=== PATIENT | male | born 1990 | race Caucasian/White ===

== ENCOUNTER 2017-12-04 09:03 | Emergency (ER) | payer BC ==
[2017-12-04 09:15] VITALS: BP 120/79
--- NOTE | 2017-12-04 09:22 | UC ---
Cardiac HPI - HPI Summary HPI Summary: 27 yo male presents with left sided chest pain that began 3 days ago and has been persistent since. He tells me that he quit smoking cigarettes 1 week ago and has been using "vapes" since. His pain is worse when taking a deep breath. Denies fever, chills, cough, SOB, DEAN, abdominal pain, n/v, or recent illness. His father and grandfather both <60years old due to DE. - History of Current Complaint Chief Complaint: UCChestPain Stated Complaint: CHEST PAIN Time Seen by Provider: 12/04/17 09:22 Hx Obtained From: Patient Initial Severity: Mild Current Severity: Mild Pain Intensity: 4 - Allergy/Home Medications Allergies/Adverse Reactions: Allergies Allergy/AdvReac Type Severity Reaction Status Date / Time No Known Allergies Allergy Verified 12/04/17 10:47 Home Medications: Home Medications NK [No Home Medications Reported] 12/04/17 [History Confirmed 12/04/17] PMH/Surg Hx/FS Hx/Imm Hx - Additional Past Medical History Additional PMH: None - Surgical History Surgical History: Yes Surgery Procedure, Year, and Place: fx nose repaired - Family History Known Family History: Positive: Cardiac Disease, Hypertension - Social History Occupation: Employed Full-time Lives: With Family Alcohol Use: Daily Alcohol Amount: 2 BEERS/NIGHT Substance Use Type: Marijuana Substance Use Comment - Amount & Last Used: daily Smoking Status (MU): Former Smoker Type: Cigarettes Amount Used/How Often: 1 PPD Review of Systems Constitutional: Negative Skin: Negative Eyes: Negative ENT: Negative Respiratory: Negative Cardiovascular: Chest Pain Gastrointestinal: Negative Genitourinary: Negative Neurovascular: Negative Neurological: Negative Psychological: Negative All Other Systems Reviewed And Are Negative: Yes Physical Exam - Summary Physical Exam Summary: GENERAL: NAD. WDWN. No pain distress. SKIN: No rashes, sores, lesions, or open wounds. NECK: Supple. Nontender. No lymphadenopathy. CHEST: CTAB. No r/r/w. No accessory muscle use. Breathing comfortably and in no distress. CV: RRR. Without m/r/g. Pulses intact. Cap refill <2seconds ABDOMEN: Soft. NTTP. No distention or guarding. No CVA tenderness. Bowel sounds present NEURO: Alert. PSYCH: Age appropriate behavior. Triage Information Reviewed: Yes Vital Signs: Initial Vital Signs Temp 97.6 F 12/04/17 09:09 Pulse 56 12/04/17 09:09 Resp 18 12/04/17 09:09 BP 120/79 12/04/17 09:09 Pulse Ox 99 12/04/17 09:09 Vital Signs Reviewed: Yes - Assessment/Plan Course Of Treatment: XR: IMPRESSION: #. No evidence for acute intrathoracic disease. Negative exam. EKG sinus judit at 56bpm, early repol ST elevation, Incomplete BBB as read by Dr. Mckay. His symptoms are concerning for pericarditis - therefore I have advised him to be seen in the ED for further evaluation of this. Pt declined ambulance and will drive himself. - Clinical Impression Provider Diagnoses: Chest pain Discharge - Sign-Out/Discharge Documenting (check all that apply): Patient Departure All imaging exams completed and their final reports reviewed: Yes - Discharge Plan Condition: Stable Disposition: HOME Referrals: No Primary Care Phys,NOPCP [Primary Care Provider] - Additional Instructions: Please go to the ER for further evaluation of your chest pain - Billing Disposition and Condition Condition: STABLE Disposition: Home - Attestation Statements Provider Attestation: Per institutional requirements, I have reviewed the chart, however, I was not consulted specifically or made aware of this patient by the midlevel provider. I did not personally evaluate, interact with , or disposition this patient.
--- NOTE | 2017-12-04 10:11 | RAD ---
INDICATION: Chest pain. Recent smoking cessation. COMPARISON: January 11, 2013 TECHNIQUE: Dual energy PA and routine lateral views of the chest were obtained. REPORT: Clear lungs and pleural spaces. Negative for pneumothorax. The heart, pulmonary vasculature, and mediastinal contours are unremarkable. Unremarkable osseous structures and soft tissue contours. IMPRESSION: #. No evidence for acute intrathoracic disease. Negative exam.
== END 2017-12-04 10:20 | disposition home or self-care (01) ==
LOC: UCEAST 09:03
CPT/HCPCS: 71046; 93005; 99211; G0463

== ENCOUNTER 2017-12-04 10:42 | Emergency (ER) | payer BC ==
[2017-12-04] MEDS ORDERED: Aspirin 81 mg CHEW TAB* 81 MG TAB.CHEW PO ONE (11:29)
--- NOTE | 2017-12-04 11:37 | ED ---
HPI Chest Pain - HPI Summary HPI Summary: This pt is a 27 y/o male presenting to [facility] for chest pain x2 days. Pt reports his chest pain is located on the left anterior and is worse with deep breaths. He states his chest pain radiates through his back on the left side. He states he just quit smoking 2 weeks ago and has since started using vapes. Additionally he admits to smoking marijuana. Denies fever, chills, cough, SOB, abd pain, nausea, vomiting. Pt went to Urgent Care today where he had a chest XR done. NKDA. No PMHx. Home Medications Medication Instructions Recorded Confirmed Type Naproxen [Naprosyn 500 mg tab] 500 mg PO BID #14 tablet 12/04/17 Rx - History of Current Complaint Chief Complaint: EDChestPainROMI Hx Obtained From: Patient Onset/Duration: Started Days Ago - 2, Still Present Timing: Lasting Days - 2 Current Severity: Moderate Pain Intensity: 5 Pain Scale Used: 0-10 Numeric Chest Pain Location: Left Anterior Chest Pain Radiates: Yes Chest Pain Radiates To:: Back - left Character: Dull/Aching Aggravating Factor(s): Deep Breaths Alleviating Factor(s): Nothing Associated Signs and Symptoms: Positive: Chest Pain. Negative: Fever, Chills, Nausea, Vomiting - Allergy/Home Medications Allergies/Adverse Reactions: Allergies Allergy/AdvReac Type Severity Reaction Status Date / Time No Known Allergies Allergy Verified 12/04/17 10:47 PMH/Surg Hx/FS Hx/Imm Hx Endocrine/Hematology History: Denies: Hx Diabetes, Hx Thyroid Disease Cardiovascular History: Denies: Hx Hypertension Respiratory History: Denies: Hx Asthma, Hx Chronic Obstructive Pulmonary Disease (COPD) GI History: Denies: Hx Ulcer - Surgical History Surgery Procedure, Year, and Place: fx nose repaired Infectious Disease History: No Infectious Disease History: Denies: Hx Clostridium Difficile, Hx Hepatitis, Hx Human Immunodeficiency Virus (HIV), Hx of Known/Suspected MRSA, Hx Shingles, Hx Tuberculosis, Hx Known/ Suspected VRE, Hx Known/Suspected VRSA, History Other Infectious Disease, Traveled Outside the [place] in Last 30 Days - Family History Known Family History: Negative: Cardiac Disease, Hypertension, Diabetes - Social History Alcohol Use: Daily Alcohol Amount: 2 BEERS/NIGHT Substance Use Type: Reports: Cocaine - last used a couple of weeks ago, Marijuana Substance Use Comment - Amount & Last Used: daily marijuana Hx Tobacco Use: Yes Smoking Status (MU): Former Smoker Type: Cigarettes Amount Used/How Often: 1 PPD Review of Systems Negative: Fever, Chills Positive: Chest Pain Negative: Shortness Of Breath, Cough Negative: Abdominal Pain, Vomiting, Nausea Skin: Negative Neurological: Negative All Other Systems Reviewed And Are Negative: Yes Physical Exam - Summary Physical Exam Summary: Appearance: Well-appearing, moderate pain distress, well-nourished Skin: Warm, color reflects adequate perfusion, dry Head: Normal Head/Face inspection, atraumatic Eyes: Conjunctiva clear ENT: Normal inspection Neck: Supple, no nodes, no JVD Respiratory: Lungs clear, normal breath sounds, no respiratory distress Cardio: RRR, No murmur, pulses normal, brisk capillary refill Abdomen: Soft, nontender Bowel sounds: Present Musculoskeletal: Strength Intact/ROM intact, no calf tenderness, no edema. Psychological: Normal Neuro: Alert, muscle tone normal, no focal deficit Triage Information Reviewed: Yes Vital Signs On Initial Exam: Initial Vitals Temp Pulse Resp BP Pulse Ox 97.7 F 56 18 126/76 99 12/04/17 10:44 12/04/17 10:44 12/04/17 10:44 12/04/17 10:44 12/04/17 10:44 Vital Signs Reviewed: Yes Diagnostics - Vital Signs Vital Signs Temp Pulse Resp BP Pulse Ox 12/04/17 10:44 97.7 F 56 18 126/76 99 - Laboratory Result Diagrams: 12/04/17 11:48 12/04/17 11:48 Lab Statement: Any lab studies that have been ordered have been reviewed, and results considered in the medical decision making process. - Radiology Chest XR from Urgent Care Xray Interpretation: No Acute Changes - IMPRESSION: No evidence for acute intrathoracic disease. Negative exam. Dr. Fernandez has reviewed this report. Radiology Interpretation Completed By: Radiologist - EKG 11:32 Cardiac Rate: Bradycardia - at 54 bpm EKG Rhythm: Sinus Bradycardia ST Segment: Non-Specific Ectopy: None EKG Interpretation: nml AV/IV CT, nml QTc, and nml axis. EKG Comparison: No Significant Change - no acute changes compared to 01/11/13 and to Urgent Care's EKG today. Re-Evaluation - Re-Evaluation First Eval Re-Evaluation Time: 16:14 Comment: Pt still with chest pain. He was only given aspirin. He admits to last doing cocaine a couple of weeks ago. BP is 115/68, HR is 68 bpm, O2 sat is 99% on room air. Chest Pain Course/Dx - Course Course Of Treatment: Pt medications reviewed this visit. Pt is a 27 y/o male presenting to the ED c/o left anterior chest pain radiating through his back on the left side. Pt admits to vaping, smoking marijuana, and using cocaine a couple of weeks ago. Chest XR from Urgent Care shows no evidence for acute intrathoracic disease. Negative exam. Pt had 2 negative troponins and a D- dimer less than 200. Pt will be discharged to home with rx for Naproxen. He is strongly advised to stop vaping and stop smoking marijuana. - Diagnoses Provider Diagnoses: Pleurisy, Tobacco use disorder, Chest pain Discharge - Sign-Out/Discharge Documenting (check all that apply): Patient Departure - Discharge to home - Discharge Plan Condition: Stable Disposition: HOME Prescriptions: Naproxen [Naprosyn 500 mg tab] 500 mg PO BID #14 tablet Patient Education Materials: Pleurisy (ED), How to Stop Smoking (ED) Referrals: [facility] REFERRAL [Outside] - 2 Days [facility] [Outside] Additional Instructions: Dr. Fernandez has prescribed you Naproxen that she wants you to take at least for 1 week with food. Try to stop smoking and do not vape. RETURN TO THE EMERGENCY DEPARTMENT FOR ANY NEW OR WORSENING SYMPTOMS. - Attestation Statements Document Initiated by Scribe: Yes Documenting Scribe: Bushra Pruitt Provider For Whom Elise is Documenting (Include Credential): Dr. Makayla Fernandez MD Scribe Attestation: Bushra Lam, scribed for Dr. Makayla Fernandez MD on 12/04/17 at 1646.
[2017-12-04 11:59] LABS: ABS Basophils 0.1 10^3/ul (0-0.2); ABS Eosinophils 0.2 10^3/ul (0-0.6); ABS Lymphocytes 2.6 10^3/ul (1.0-4.8); ABS Monocytes 0.5 10^3/ul (0-0.8); ABS Neutrophils 2.9 10^3/ul (1.5-7.7); ABS Nucleated RBC 0 10^3/ul; Eosinophil % 2.5 % (0-6); Hematocrit 49 % (42-52); Hemoglobin 17.3 g/dl (14.0-18.0); Lymphocyte % 41.2 % (25-47); Mean Corpuscular HGB Conc 35 g/dl (31-36); Mean Corpuscular Hemoglobin 32 pg (27-31); Mean Corpuscular Volume 90 fL (80-94); Mean Platelet Volume 6.9 um3 (7.4-10.4); Nucleated Red Blood Cells % 0.1; Platelet Count 313 10^3/ul (150-450); Red Blood Count 5.47 10^6/ul (4.00-5.40); Red Cell Distribution Width 13 % (10.5-15); White Blood Count 6.3 10^3/ul (3.5-10.8)
[2017-12-04 12:18] LABS: EGFR Non-African American 119.5 (>60)
[2017-12-04 16:32] VITALS: BP 115/68
== END 2017-12-04 16:31 | disposition home or self-care (01) ==
LOC: ED 10:42
DX: R09.1 Pleurisy (principal); R07.9 Chest pain, unspecified; F17.210 Nicotine dependence, cigarettes, uncomplicated
CPT/HCPCS: 36415; 80053; 83605; 84484; 85025; 85379; 93005; 99282; A9270-GY

== ENCOUNTER 2018-06-04 10:04 | Emergency (ER) | payer SELFPAY ==
[2018-06-04] MEDS ORDERED: Aspirin 81 mg CHEW TAB* 81 MG TAB.CHEW PO ONE (10:18)
[2018-06-04] MEDS ORDERED: LORazepam TAB(*) 1 MG PO ONE (10:19)
[2018-06-04 11:50] LABS: ABS Basophils 0 10^3/ul (0-0.2); ABS Eosinophils 0 10^3/ul (0-0.6); ABS Lymphocytes 1.2 10^3/ul (1.0-4.8); ABS Monocytes 0.7 10^3/ul (0-0.8); ABS Neutrophils 8.9 10^3/ul (1.5-7.7); ABS Nucleated RBC 0 10^3/ul; Eosinophil % 0.3 %; Hematocrit 47 % (36-46); Hemoglobin 16.5 g/dL (14.0-18.0); Mean Corpuscular HGB Conc 35 g/dL (31-36); Mean Corpuscular Hemoglobin 31 pg (27-31); Mean Corpuscular Volume 88 fL (80-94); Mean Platelet Volume 7.1 fL (7.4-10.4); Nucleated Red Blood Cells % 0; Platelet Count 324 10^3/uL (150-450); Red Blood Count 5.29 10^6 /uL (4.18-5.48); Red Cell Distribution Width 13 % (10.5-15); White Blood Count 10.9 10^3/uL (3.5-10.8)
[2018-06-04 12:00] LABS: Activated Partial Thrombo Time 29.8 seconds (26.0-36.3); INR 0.87 (0.77-1.02)
[2018-06-04 12:09] LABS: Albumin 4.8 g/dL (3.2-5.2); Albumin/Globulin Ratio 2.4 (1-3); BUN/Creatinine Ratio 18.9 (8-20); Calcium 9.7 mg/dL (8.6-10.3); EGFR African American 154.7 (>60); EGFR Non-African American 127.9 (>60); Magnesium 1.8 mg/dL (1.9-2.7); Potassium 3.8 mmol/L (3.5-5.0); Total Bilirubin 0.6 mg/dL (0.2-1.0); Total Protein 6.8 g/dL (6.4-8.9)
[2018-06-04 12:12] LABS: Myoglobin 23.1 ng/mL (17.4-105.7)
[2018-06-04 12:14] LABS: CKMB ng/mL 2.7 ng/mL (0.6-6.3)
[2018-06-04 12:32] VITALS: BP 124/74
[2018-06-04 13:38] LABS: T4, Total 3.42 mcg/dL (6.09-12.23)
[2018-06-04 13:42] LABS: TSH (Thyroid Stimulating Horm) 0.67 mcIU/mL (0.34-5.60)
--- NOTE | 2018-06-04 15:35 | ED ---
HPI Chest Pain - HPI Summary HPI Summary: The patient is a 28-year-old male presenting to the ED with severe anxiety attack. He states he is having midsternal chest pressure, tingling all over including his face. He is also endorsing cramping up of the hands. He states this is happened before and he states "I know it's my heart." He does have a history of anxiety and takes no medications. He does not think this is anxiety though. He is stating on arrival "this is freaking me out!" He denies any health problems, takes no medications and is otherwise healthy. He states he has been worked up for cardiac issues in the past for similar symptoms and all were negative. - History of Current Complaint Chief Complaint: EDChestPainROMI Time Seen by Provider: 06/04/18 10:17 Hx Obtained From: Patient Onset/Duration: Started Hours Ago Timing: Constant Initial Severity: Mild Current Severity: Severe Pain Intensity: 2 Pain Scale Used: 0-10 Numeric Chest Pain Location: Mid Sternal Chest Pain Radiates: No Alleviating Factor(s): Rest Associated Signs and Symptoms: Positive: Anxiety, Recent Stress, Numbness, Tingling. Negative: Chills, Lightheadedness, Nausea, Palpitations, Abdominal Pain, Calf Pain/Swelling, Vomiting, Bloody Sputum - Risk Factors Pulmonary Embolism Risk Factors: Negative TAD Risk Factors: Negative - Allergy/Home Medications Allergies/Adverse Reactions: Allergies Allergy/AdvReac Type Severity Reaction Status Date / Time No Known Allergies Allergy Verified 06/04/18 10:07 Home Medications: Home Medications NK [No Home Medications Reported] 06/04/18 [History Confirmed 06/04/18] PMH/Surg Hx/FS Hx/Imm Hx Previously Healthy: Yes Endocrine/Hematology History: Denies: Hx Diabetes, Hx Thyroid Disease Cardiovascular History: Denies: Hx Hypertension Respiratory History: Denies: Hx Asthma, Hx Chronic Obstructive Pulmonary Disease (COPD) GI History: Denies: Hx Ulcer - Surgical History Surgery Procedure, Year, and Place: fx nose repaired - Immunization History Hx Pertussis Vaccination: No Immunizations Up to Date: Yes Infectious Disease History: No Infectious Disease History: Denies: Hx Clostridium Difficile, Hx Hepatitis, Hx Human Immunodeficiency Virus (HIV), Hx of Known/Suspected MRSA, Hx Shingles, Hx Tuberculosis, Hx Known/ Suspected VRE, Hx Known/Suspected VRSA, History Other Infectious Disease, Traveled Outside the [place] in Last 30 Days - Family History Known Family History: Positive: None Negative: Cardiac Disease, Hypertension, Diabetes - Social History Occupation: Employed Part-time Lives: With Family Alcohol Use: Occasionally Alcohol Amount: 2 BEERS/NIGHT Hx Substance Use: Yes Substance Use Type: Reports: Marijuana Substance Use Comment - Amount & Last Used: reports stopped marijuana last week Hx Tobacco Use: Yes Smoking Status (MU): Former Smoker Type: Cigarettes Amount Used/How Often: 1 PPD Review of Systems Negative: Fever, Chills, Fatigue, Skin Diaphoresis Negative: Blurred Vision, Diplopia Negative: Dental Pain, Sore Throat Positive: Chest Pain Positive: Shortness Of Breath. Negative: Cough Negative: Abdominal Pain, Vomiting, Diarrhea, Nausea Genitourinary: Negative Positive: no symptoms reported Negative: Arthralgia, Myalgia Positive: Anxious All Other Systems Reviewed And Are Negative: Yes Physical Exam Triage Information Reviewed: Yes Vital Signs On Initial Exam: Initial Vitals Temp Pulse Resp BP Pulse Ox 97.4 F 135 22 138/93 100 06/04/18 10:07 06/04/18 10:07 06/04/18 10:07 06/04/18 10:07 06/04/18 10:07 Vital Signs Reviewed: Yes Appearance: Positive: Well-Appearing, Well-Nourished Skin: Positive: Warm, Skin Color Reflects Adequate Perfusion Head/Face: Positive: Normal Head/Face Inspection Eyes: Positive: EOMI, Conjunctiva Clear Neck: Positive: Supple, No Lymphadenopathy Respiratory/Lung Sounds: Positive: Clear to Auscultation, Breath Sounds Present Cardiovascular: Positive: Normal, RRR, Pulses are Symmetrical in both Upper and Lower Extremities Musculoskeletal: Positive: Normal, Strength/ROM Intact Neurological: Positive: Sensory/Motor Intact, Alert, Oriented to Person Place, Time Psychiatric: Positive: Anxious Diagnostics - Vital Signs Vital Signs Temp Pulse Resp BP Pulse Ox 06/04/18 12:39 98.2 F 65 18 124/74 95 06/04/18 12:04 18 124/74 06/04/18 12:00 72 26 95 06/04/18 11:44 63 18 129/86 98 06/04/18 11:42 16 06/04/18 11:04 64 13 138/82 96 06/04/18 10:07 97.4 F 135 22 138/93 100 - Laboratory Lab Results: Lab Results 06/04/18 06/04/18 06/04/18 Range/Units 11:38 11:38 11:38 WBC 10.9 H (3.5-10.8) 10^3/uL RBC 5.29 (4.18-5.48) 10^6 /uL Hgb 16.5 (14.0-18.0) g/dL Hct 47 H (36-46) % MCV 88 (80-94) fL MCH 31 (27-31) pg MCHC 35 (31-36) g/dL RDW 13 (10.5-15) % Plt Count 324 (150-450) 10^3/uL MPV 7.1 L (7.4-10.4) fL Neut % (Auto) 81.6 % Lymph % (Auto) 11.0 % Graham % (Auto) 6.8 % Eos % (Auto) 0.3 % Baso % (Auto) 0.3 % Absolute Neuts (auto) 8.9 H (1.5-7.7) 10^3/ul Absolute Lymphs (auto) 1.2 (1.0-4.8) 10^3/ul Absolute Monos (auto) 0.7 (0-0.8) 10^3/ul Absolute Eos (auto) 0 (0-0.6) 10^3/ul Absolute Basos (auto) 0 (0-0.2) 10^3/ul Absolute Nucleated RBC 0 10^3/ul Nucleated RBC % 0 INR (Anticoag Therapy) (0.77-1.02) APTT (26.0-36.3) seconds Sodium 139 (135-145) mmol/L Potassium 3.8 (3.5-5.0) mmol/L Chloride 105 (101-111) mmol/L Carbon Dioxide 29 (22-32) mmol/L Anion Gap 5 (2-11) mmol/L BUN 14 (6-24) mg/dL Creatinine 0.74 (0.67-1.17) mg/dL Est GFR ( Amer) 154.7 (>60) Est GFR (Non-Af Amer) 127.9 (>60) BUN/Creatinine Ratio 18.9 (8-20) Glucose 104 H (70-100) mg/dL Lactic Acid (0.5-2.0) mmol/L Calcium 9.7 (8.6-10.3) mg/dL Magnesium 1.8 L (1.9-2.7) mg/dL Total Bilirubin 0.60 (0.2-1.0) mg/dL AST 30 (13-39) U/L ALT 34 (7-52) U/L Alkaline Phosphatase 100 (34-104) U/L Total Creatine Kinase 318 H (10-223) U/L CK-MB (CK-2) 2.7 (0.6-6.3) ng/mL Myoglobin 23.1 (17.4-105.7) ng/mL Troponin I 0.00 (<0.04) ng/mL B-Natriuretic Peptide 18 (<=100) pg/mL Total Protein 6.8 (6.4-8.9) g/dL Albumin 4.8 (3.2-5.2) g/dL Globulin 2.0 (2-4) g/dL Albumin/Globulin Ratio 2.4 (1-3) Vitamin B12 339 (180-914) pg/mL TSH 0.67 (0.34-5.60) mcIU/mL Thyroxine (T4) 3.42 L (6.09-12.23) mcg/dL 06/04/18 06/04/18 Range/Units 11:38 11:38 WBC (3.5-10.8) 10^3/uL RBC (4.18-5.48) 10^6 /uL Hgb (14.0-18.0) g/dL Hct (36-46) % MCV (80-94) fL MCH (27-31) pg MCHC (31-36) g/dL RDW (10.5-15) % Plt Count (150-450) 10^3/uL MPV (7.4-10.4) fL Neut % (Auto) % Lymph % (Auto) % Graham % (Auto) % Eos % (Auto) % Baso % (Auto) % Absolute Neuts (auto) (1.5-7.7) 10^3/ul Absolute Lymphs (auto) (1.0-4.8) 10^3/ul Absolute Monos (auto) (0-0.8) 10^3/ul Absolute Eos (auto) (0-0.6) 10^3/ul Absolute Basos (auto) (0-0.2) 10^3/ul Absolute Nucleated RBC 10^3/ul Nucleated RBC % INR (Anticoag Therapy) 0.87 (0.77-1.02) APTT 29.8 (26.0-36.3) seconds Sodium (135-145) mmol/L Potassium (3.5-5.0) mmol/L Chloride (101-111) mmol/L Carbon Dioxide (22-32) mmol/L Anion Gap (2-11) mmol/L BUN (6-24) mg/dL Creatinine (0.67-1.17) mg/dL Est GFR ( Amer) (>60) Est GFR (Non-Af Amer) (>60) BUN/Creatinine Ratio (8-20) Glucose (70-100) mg/dL Lactic Acid 1.0 (0.5-2.0) mmol/L Calcium (8.6-10.3) mg/dL Magnesium (1.9-2.7) mg/dL Total Bilirubin (0.2-1.0) mg/dL AST (13-39) U/L ALT (7-52) U/L Alkaline Phosphatase (34-104) U/L Total Creatine Kinase (10-223) U/L CK-MB (CK-2) (0.6-6.3) ng/mL Myoglobin (17.4-105.7) ng/mL Troponin I (<0.04) ng/mL B-Natriuretic Peptide (<=100) pg/mL Total Protein (6.4-8.9) g/dL Albumin (3.2-5.2) g/dL Globulin (2-4) g/dL Albumin/Globulin Ratio (1-3) Vitamin B12 (180-914) pg/mL TSH (0.34-5.60) mcIU/mL Thyroxine (T4) (6.09-12.23) mcg/dL Result Diagrams: 06/04/18 11:38 06/04/18 11:38 Lab Statement: Any lab studies that have been ordered have been reviewed, and results considered in the medical decision making process. Chest Pain Course/Dx - Course Course Of Treatment: During his course of treatment, patient is evaluated for midsternal chest pain which he felt at a 2/10 this morning, he states he began to become nervous about it and immediately stated he had numbness and tingling all over his body with his hands cramping up. He states he was able to drive to the emergency room, but was having panic attacks on the way. On arrival, he is given an Ativan and an EKG was obtained. EKG shows normal sinus rhythm. Labs obtained which are all WNL including a troponin of 0.00. Chest x-ray obtained which shows no acute cardiopulmonary disease. Discussed with patient at length believe this to be an anxiety attack. He is very concerned over his lung capacity and feels this is his heart or his lungs. He does admit to a anxiety history and states he has been having more anxiety attacks over the past month. He states he is unsure why. He denies any SI or HI. He denies any worsening depression. He states he feels he cannot handle things as well as he used to and becomes very agitated and anxious easily. He does not wish to speak with anyone, however he would like to be referred to a supervisor poultry farm. He is diagnosed with anxiety. - Chest Pain Differential Diagnosis/HQI/PQRI: Angina - Diagnoses Provider Diagnoses: Anxiety Discharge - Sign-Out/Discharge Documenting (check all that apply): Patient Departure Patient Received Moderate/Deep Sedation with Procedure: No - Discharge Plan Condition: Stable Disposition: HOME Patient Education Materials: Anxiety (ED) Referrals: Rubi Paulino MD [Medical Doctor] - No Primary Care Phys,NOPCP [Primary Care Provider] - Additional Instructions: If you continue to feel like you cannot breath or are having more shortness of breath - return to the ED Please follow up with your PCP regarding your anxiety - Billing Disposition and Condition Condition: STABLE Disposition: Home
== END 2018-06-04 12:39 | disposition home or self-care (01) ==
LOC: ED 10:04
DX: F41.9 Anxiety disorder, unspecified (principal); Z87.891 Personal history of nicotine dependence; R07.89 Other chest pain
CPT/HCPCS: 36415; 71046; 80053; 82550; 82553; 82607; 83605; 83735; 83874; 83880; 84436; 84443; 84484; 85025; 85610; 85730; 93005; 99282; A9270-GY